=== PATIENT | male | born 1940 | race Caucasian/White ===

== ENCOUNTER → 2019-05-19 12:41 | Outpatient (CLI) | payer MEDICARE, OTHER ==
--- NOTE | 2019-05-20 13:52 | EC ---
PATIENT:VALENTINO MANCIA DATE OF SERVICE: 05/19/19 SEX: M MEDICAL RECORD: [id number] DATE OF : 40 LOCATION:[facility] AGE OF PATIENT: 78 ADMISSION DATE: 05/19/19 REFERRING PHYSICIAN: INTERPRETING PHYSICIAN: DAREN VALENCIA MD ECHOCARDIOGRAM REPORT ECHO CHARGES 4 ECHO COMPLETE Date: 05/19/19 CLINICAL DIAGNOSIS: ANGINA/ABNORMAL EKG/MURMUR H/O HTN/CAD ECHOCARDIOGRAPHIC MEASUREMENTS (adult normal given) AC root (d.<3.7cm) 3.4 cm LV Septum d (<1.2 cm> 1.4 cm Valve Excursion 1.8 cm LV Septum (systole) 2.2 cm Left Atria (s.<4.0cm> 4.8 cm LVPW d(<1.2cm) 1.2 cm RV (d.<2.3cm) 4.0 cm LVPW (sytole) 2.1 cm LV diastole(<5.6CM) 5.4 cm MV E-F(>70mm/sec) cm LV systole 2.9 cm LVOT Diameter 1.8 cm MV exc.(>10mm) cm Est.ejection fraction (50-75%) % DOPPLER: LVIT cm/sec A 40.0 cm/sec E 73.0 cm/sec LA cm/sec RVSP 36.0 mmHg LVOT 81.0 cm/sec AOP1/2T m/s Asc. Ao 173 cm/sec RVOT 54.0 cm/sec RA cm/sec PA 136 cm/sec AV Gradient Peak 12.0 mmHg AV Mean 6.0 mmHg AV Area 1.2 cm MV Gradient Peak 2.9 mmHg MV Mean 0.93 mmHg MV Area cm COMMENTS: OP - HC Optics Engineer: 1 JAREK CATE Radiology Special Procedure Tech: 3 Dr. Hager TAPE# PACS Pericardial Effusion N DATE OF SERVICE: Adequate 2D, color flow imaging, spectral Doppler, and M-Mode. Mild LVH is present. LV internal dimensions are normal. Wall motion is normal. EF is greater than or equal to 55%. Aortic valve is tricuspid. No evidence of stenosis by Doppler interrogation. Left atrium dilated at 4.8 cm. Mitral valve shows no prolapse. Trace MR. Right-sided chambers are grossly normal. Mild TR. ECHOCARDIOGRAM REPORT [id number] RUVALCABA TRANSINT:[id number] Voice Confirmation ID: [id number] DOCUMENT ID: [id number] DAREN VALENCIA MD at 1352 CC: [id number] DICTATION DATE: 05/20/19839 DIRECTOR OF FLIGHT OPERATIONS: 05/20/19 1145 DEP CLI 05/19/19 [place] [id number] [place] [id number]
== END | disposition home or self-care (01) ==
LOC: D.HCCECHO 12:41
PROVIDERS: ATTEND Internal Medicine Interventional Cardiology
DX: R01.1 Cardiac murmur, unspecified (principal)

== ENCOUNTER → 2019-05-20 09:37 | Outpatient (CLI) | payer MEDICARE, OTHER | END | disposition home or self-care (01) | LOC: D.HCCARDIO 09:37 | PROVIDERS: ATTEND Internal Medicine Interventional Cardiology | DX: I20.9 Angina pectoris, unspecified (principal) ==